=== PATIENT | female | born 1950 | race Caucasian/White ===

== ENCOUNTER 2020-11-07 11:11 | Emergency (ER) | payer MEDICARE ==
[~2020-11-07] VITALS: Ht 167.6 cm; Wt 90.7 kg
[2020-11-07 11:20] VITALS: BP 136/100
--- NOTE | 2020-11-07 12:09 | NUR ---
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
[2020-11-07] MEDS ORDERED: LIOT5TAB11 PO (12:29)
[2020-11-07] MEDS ORDERED: ATOR10TA PO (12:29)
== END 2020-11-07 12:57 | disposition home or self-care (01) ==
LOC: ER 11:25
DX: S80.12XA Contusion of left lower leg, initial encounter (principal); Z98.890 Other specified postprocedural states; Z88.5 Allergy status to narcotic agent; Z79.899 Other long term (current) drug therapy; X58.XXXA Exposure to other specified factors, initial encounter; Y93.89 Activity, other specified; Y92.89 Other specified places as the place of occurrence of the external cause; Y99.8 Other external cause status
CPT/HCPCS: 93971-TC